=== PATIENT | female | born 1970 | race Caucasian/White ===

== ENCOUNTER → 2016-07-21 | Outpatient (CLI) | payer OTHER ==
[~2016-07-21] MED LIST: ALAVERT10 MG PO; FLEXERIL10 MG PO; HYZAAR PO; METFORMIN HCL500 M1 PO; PREDNISONE PO; SINGULAIR PO; TOPROL XL50 MG PO; TYLENOL #3 PO; ZYLOPRIM PO
--- NOTE | ~2016-07-21 | MY11 ---
[facility] A Service [facility] RADIOLOGY TEXT RESULTS PATIENT: BRIANNA BOBBY LOCATION: [facility] : 68 UNIT #: [id number] AGE: [address]: Shantelle Naylor SEX: F ORDER DR: [id number] [facility] [place], [place] [address] [id number] O MR#: [id number] Acc #: [id number] NAME: BRIANNA BOBBY. : 1970 SEX: F STUDY DATE/TIME: 07/21/2016 15:17 UNIT: [facility] ROOM: STUDY DESCRIPTION: MY Mammogram Screening Dig Jonatan Attending Physician: Shantelle Naylor A.P.R.N. Ordering Physician: Shantelle Naylor A.P.R.N. Primary Care Physician: Shantelle Naylor A.P.R.N. MEDICAL IMAGING REPORT This report is preliminary unless electronic signature is present EXAM Bilateral digital screening mammogram with CAD 07/21/2016 INDICATIONS 45-year-old female for routine screening. No reported problems and no personal or family history breast cancer. No surgeries. TECHNIQUE CC and MLO views were obtained and reviewed with a FDA-approved CAD device. COMPARISON STUDIES 06/06/2012 and 05/20/2011. FINDINGS Breast parenchyma is composed of scattered fibroglandular densities. The pattern is unchanged. There is no new dominant nodule or mass in either breast. No new suspicious clustered microcalcifications. Benign calcifications are present. IMPRESSION 1. Benign screening mammogram and 1 year followup recommended. BIRADS: 2 Benign Finding. Patients over the age of 40 are entered into a reminder system with target due date for the next mammogram. A result letter will also be sent to the patient. [facility] A Service [facility] RADIOLOGY TEXT RESULTS PATIENT: BRIANNA BOBBY LOCATION: [facility] : 68 UNIT #: [id number] AGE: [address]: Shantelle Naylor SEX: F ORDER DR: Dictated by... Sandeep Knight M.D. THIS IS AN ELECTRONICALLY VERIFIED REPORT Sandeep Knight M.D. at 07/23/2016 7:31 AM JEANETTE/paula TD: 07/22/2016 21:41 JOB #: [id number] MEDICAL IMAGING REPORT Page 1 of 1 COPY
== END | disposition home or self-care (01) ==
LOC: CWCC 14:38
DX: Z12.31 Encounter for screening mammogram for malignant neoplasm of breast (principal)
CPT/HCPCS: G0202